=== PATIENT | male | born 1970 | race Caucasian/White ===

== ENCOUNTER → 2019-05-08 | Outpatient (CLI) | payer OTHER ==
[2019-05-08 17:32] LABS: Luteinizing Hormone 5.6 mIU/mL; Prolactin 8.1 ng/mL (2.1-17.7)
== END | disposition home or self-care (01) ==
LOC: LABWHC1 10:57
PROVIDERS: ATTEND Urology
DX: E29.1 Testicular hypofunction (principal)
CPT/HCPCS: 36415; 83002; 84146; 84402; 84403

== ENCOUNTER 2019-09-04 01:32 | Emergency (ER) | payer OTHER ==
[2019-09-04 01:42] VITALS: BP 146/94; PULSE 91; RESP 18; TEMP 97.5
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
--- NOTE | 2019-09-04 02:10 | XR ---
EXAMINATION TYPE: XR lumbar spine 2 or 3V DATE OF EXAM: 09/04/2019 COMPARISON: NONE HISTORY: Pain TECHNIQUE: 3 views FINDINGS: Vertebra have normal alignment. Posterior elements are intact. There is degenerative disc s pace narrowing from L2 to L5. There is spurring of the endplates. There is no compression fracture. S acroiliac joints appear normal. IMPRESSION: Multilevel spondylotic changes. No fracture seen. There are probably left small renal d[place] culi.
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
--- NOTE | 2019-09-04 02:18 | XR ---
EXAMINATION TYPE: XR cervical spine trauma DATE OF EXAM: 09/04/2019 COMPARISON: NONE HISTORY: Neck pain TECHNIQUE: 4 views FINDINGS: Cervical vertebra have normal alignment. There is some narrowing of C5-6 disc space with an terior spurring. Posterior elements are intact. There is no evidence of a fracture. There are no cerv ical ribs. Atlantoaxial facet joint is normal. IMPRESSION: Mild spondylosis. No fracture.
== END 2019-09-04 02:40 | disposition home or self-care (01) ==
LOC: EC 01:32
DX: Z04.1 Encounter for examination and observation following transport accident (principal); M54.2 Cervicalgia; M54.5 Low back pain; J84.10 Pulmonary fibrosis, unspecified
CPT/HCPCS: 71046; 72050; 72100; 99284

== ENCOUNTER → 2019-09-24 | Outpatient (CLI) | payer OTHER | END | disposition home or self-care (01) | LOC: CPPFTMAIN 10:36 | PROVIDERS: ATTEND Family Medicine | DX: R94.2 Abnormal results of pulmonary function studies (principal); J84.89 Other specified interstitial pulmonary diseases | CPT/HCPCS: 94060; 94726; 94729 ==

== ENCOUNTER → 2019-10-16 | Outpatient (CLI) | payer OTHER ==
--- NOTE | 2019-10-16 21:46 | CT ---
EXAMINATION TYPE: CT chest wo con DATE OF EXAM: 10/16/2019 COMPARISON: Radiograph 09/04/2019 HISTORY: 48-year-old male with cough TECHNIQUE: Contiguous axial scanning of the chest without IV contrast. Coronal and sagittal reconstru ctions performed. CT DLP: 609.4 mGycm Automated exposure control for dose reduction was used. FINDINGS: The heart is normal size without pericardial effusion. Ascending aorta borderline ectatic at 3.5 cm. Conventional arch vessel branching anatomy. Scattered nonenlarged and borderline and mildly enlarged mediastinal lymph nodes are present measurin g up to 1.4 cm precarinal region, 9 mm left tracheal bronchial angle, and 1.1 cm AP window. Subcarina l lymph node measures 1.8 cm and there is a possible right paraesophageal lymph node measuring up to 2.6 cm. Multifocal patchy groundglass densities upper and mid lungs. Strandy atelectasis lower lungs. No cyst ic change or honeycombing is seen. Visualized upper abdomen shows marked hepatic steatosis. Spleen is enlarged at 17.8 cm. 7 mm nonobstr uctive left renal calculus and 3 mm nonobstructive right renal calculus. Bones: Mild endplate spondylosis mid to lower thoracic spine. IMPRESSION: 1. PATCHY AND CONFLUENT GROUND GLASS WITH AN UPPER TO MID LUNG PREDOMINANCE. THE ETIOLOGY IS UNCLEAR. DIFFERENTIAL CONSIDERATIONS INCLUDE HYPERSENSITIVITY PNEUMONITIS, ATYPICAL INFECTIONS, SARCOIDOSIS, AND INTERSTITIAL PNEUMONITIS SUCH NSIP AND RB-ILD. CONSIDER PULMONARY MEDICINE CONSULTATION. [facility] ER CLINICAL CORRELATION WILL BE NEEDED. 2. BORDERLINE AND MILDLY ENLARGED MEDIASTINAL LYMPHADENOPATHY MEASURING UP TO 1.8 CM. FINDINGS MAY BE REACTIVE. THREE-MONTH FOLLOW-UP RECOMMENDED. 3. POSSIBLE LARGER 2.6 CM RIGHT PARAESOPHAGEAL LYMPH NODE VERSUS OTHER LESION SUCH A BRONCHOGENIC/ ESOPHAGEAL DUPLICATION CYST. CONTRAST-ENHANCED CHEST MRI CAN PROVIDE FURTHER TISSUE CHARACTERIZATION. 4. MARKED HEPATIC STEATOSIS, SPLENOMEGALY AT 17.8 CM, AND BILATERAL NONOBSTRUCTIVE RENAL CALCULI LIN URING UP TO 7 MM.
== END | disposition home or self-care (01) ==
LOC: RADCTMAIN 10-01 13:15
PROVIDERS: ATTEND Family Medicine
DX: K76.0 Fatty (change of) liver, not elsewhere classified (principal); N20.0 Calculus of kidney; R16.1 Splenomegaly, not elsewhere classified; R59.0 Localized enlarged lymph nodes; R91.8 Other nonspecific abnormal finding of lung field
CPT/HCPCS: 71250

== ENCOUNTER → 2019-11-02 | Outpatient (CLI) | payer OTHER ==
[2019-11-02 12:12] LABS: Basophils % (A) 1 %; Eosinophils # (A) 0.3 k/uL (0-0.7); Eosinophils % (A) 5 %; HCT 44.8 % (39.0-53.0); HGB 14.8 gm/dL (13.0-17.5); Lymphocytes # (A) 1.1 k/uL (1.0-4.8); Lymphocytes % (A) 21 %; MCH 28.3 pg (25.0-35.0); MCHC 33.1 g/dL (31.0-37.0); MCV 85.5 fL (80.0-100.0); Mean Platelet Volume 7.4; Monocytes # (A) 0.3 k/uL (0-1.0); Monocytes % (A) 5 %; Neutrophils # (A) 3.5 k/uL (1.3-7.7); Neutrophils % (A) 67 %; Platelet Count 212 k/uL (150-450); Poikilocytosis Slight; RBC 5.24 m/uL (4.30-5.90); RDW 14.6 % (11.5-15.5); WBC 5.3 k/uL (3.8-10.6)
[2019-11-02 14:55] LABS: Erythrocyte Sedimentation Rate 16 mm/hr (0-15)
[2019-11-02 18:15] LABS: ALT 31 U/L (10-49); AST 37 U/L (14-35); African American GFR (CKD) 82.4 (60.0-200.0); Albumin/Globulin Ratio 1.48 (1.60-3.17); Alkaline Phosphatase 127 U/L (41-126); BUN/Creat Ratio 14.17 Ratio (12.00-20.00); Calcium 8.9 mg/dL (8.7-10.3); Carbon Dioxide 24.6 mmol/L (21.6-31.8); Chloride 105 mmol/L (96-109); Globulin 2.9 g/dL (1.6-3.3); Glucose 157 mg/dL (70-110); Non-African American GFR(CKD) 71.1 (60.0-200.0); Potassium 4.1 mmol/L (3.5-5.5); Rheumatoid Factor, Qnt <4 IU/mL (0-15); Sodium 138 mmol/L (135-145); Total Bilirubin 0.6 mg/dL (0.3-1.2); Total Protein 7.2 g/dL (6.2-8.2)
[2019-11-04 12:39] LABS: Anti-DNA, DS unit <1.0 IU/mL; Anti-Smith Ab Interp NEGATIVE (NEGATIVE); DNA Double-Stranded NEGATIVE (NEGATIVE)
[2019-11-07 21:36] LABS: Alternaria Alternata IgG 9.3 mcg/mL (< 13.6); Aspergillus fumigatus IgG Not detected (Not detected); Aureobasidium pullulans IgG 9.2 mcg/mL (< 13.6); Cladosporium herbarium IgG 35.1 mcg/mL (< 14.7); Phoma ssp. IgG 8.9 mcg/mL (< 6.6); Saccaharomospora viridis Not detected (Not detected); Saccaharopoly. rectivirgula Not detected (Not detected)
== END | disposition home or self-care (01) ==
LOC: LABWHC1 11:36
PROVIDERS: ATTEND Internal Medicine Critical Care Medicine
DX: J84.9 Interstitial pulmonary disease, unspecified (principal); R05 Cough
CPT/HCPCS: 36415; 80053; 82164; 85025; 85652; 86001; 86038; 86225; 86235; 86431; 86606; 86609

== ENCOUNTER 2019-11-27 12:20 | Day surgery (SDC) | payer OTHER ==
[2019-11-25 11:26] VITALS: BMI 42.5
[~2019-11-27 12:20] MED LIST: ALBUTEROL NEB (CONC) 2.5 MG/0.5 ML INHALATION ONE; LACTATED RINGERS 1,000 ML IV SCH; LIDOCAINE 1% (10MG/ML) FOR IV START INTRADERMA PRN; LIDOCAINE 2% (PF) 20 MG/ML 5 ML VIAL INHALATION ONE; LIDOCAINE VISCOUS 300 MG/15 ML CUP MUCOUS MEM ONE; Pre Op ABX Message 1 EACH MISC MISCELLANE ONE; SODIUM CHLORIDE 0.9% 1,000 ML IV SCH
[2019-11-27 12:43] VITALS: TEMP 97.4
[2019-11-27] MEDS ORDERED: PROPOFOL 10 MG/ML 20 ML VIAL IV ONE (13:30)
[2019-11-27] MEDS ORDERED: LIDOCAINE 1% INJ 10MG/ML (20 ML MDV) ONE (13:30)
[2019-11-27] MEDS ORDERED: LIDOCAINE 2% INJ 20 MG/ML INTRATRACH ONE (13:52)
--- NOTE | 2019-11-27 14:16 | P.PCN ---
Date of Procedure: 11/27/19 Preoperative Diagnosis: Diffuse bilateral pulmonary infiltrates, mediastinal adenopathy, rule out sarcoidosis Postoperative Diagnosis: Diffuse bilateral pulmonary infiltrates, mediastinal adenopathy, rule out sarcoidosis Procedure(s) Performed: Flexible bronchoscopy Transbronchial biopsies of the right lung Bronchioloalveolar lavage of the right middle lobe Anesthesia: SOUTH Surgeon: Donovan Finch Estimated Blood Loss (ml): 30 Pathology: other Condition: stable Disposition: same day Operative Findings: This procedure was done under conscious sedation with anesthetic agents is being administered by anesthesia the bedside. After achieving adequate sedation, the flexible bronchoscope was introduced the right nostril and was advanced into the upper airway. Examination of the posterior oropharynx, larynx, epiglottis, arytenoids and the vocal cords was done. All of the upper airway structures were within normal limits. There was dynamic obstruction of the pharyngeal and laryngeal wall consistent with obstructive sleep apnea. A total of 1% lidocaine was applied to the vocal cords and following that the bronchoscope was advanced into the upper trachea. Examination of the tracheal bronchial tree was done. Trachea was patent and within normal limits. Kandy was sharp in the midline and following that the bronchoscope was moved to the right mainstem bronchus, right upper lobe bronchus, bronchus intermedius, right middle lobe bronchus and right lower lobe bronchus was seen and visualized along with inspection of the radius segments. Bronchus was within the left and left mainstem bronchus, left upper lobe and left lower lobe bronchi were inspected along with various segments. There was endobronchial inflammatory changes throughout the patient's airways mainly in the main stem bronchi bilaterally and the main airways leading into the upper and lower lobes bilaterally. The mucosa was friable and inflamed. The bronchoscope was moved to the right middle lobe where a bronchioloalveolar lavage was done and. A total of 60 mL of fluid was infused and 25-30 mL was aspirated. Following that, the fluoroscopic guidance, transbronchial biopsies of the right lung was done and biopsies from the right upper lobe anterior segment, right middle lobe and the right lower lobe ST segment was done and the fluoroscopic guidance. There was some bleeding encountered was wedged utilizing the bronchoscope and was temponaded. At the completion of the procedure, the estimated blood loss was around 25 mL. The airways were cleared of any residual bloody mucus or secretions. No active bleeding was visualized. Bronchoscope was removed and the patient will be transferred to recovery in stable condition. Chest x-ray will be done. Rule out pneumothorax. We'll continue to follow.
--- NOTE | 2019-11-27 14:31 | FL ---
EXAMINATION TYPE: FL bronchoscopy DATE OF EXAM: 11/27/2019 CLINICAL HISTORY: Fluoroscopic documentation during bronchoscopy TECHNIQUE: Fluoroscopy. COMPARISON: None. FINDINGS: Fluoroscopic guidance was provided during procedure performed by Dr. Finch. A total of 1.23 minutes of fluoroscopic time was utilized during the procedure and 6 spot images was acquired d uring bronchoscopy. IMPRESSION: As Above.
--- NOTE | 2019-11-27 14:52 | XR ---
EXAMINATION TYPE: XR chest 1V portable DATE OF EXAM: 11/27/2019 COMPARISON: 09/04/2019 HISTORY: Cough TECHNIQUE: Single frontal view of the chest is obtained. FINDINGS: Heart size is prominent there is a coarsened central interstitium. No pleural effusion or pneumothorax. No consolidative process. IMPRESSION: Coarsened interstitium can be associated with bronchitis, interstitial pneumonitis or in terstitial pneumonia. Lack of pleural fluid argues against venous congestion. Correlate clinically.
[2019-11-27] MEDS ORDERED: ACETAMINOPHEN TAB 325 MG TAB PO ONE (15:01)
[2019-11-27 15:03] VITALS: BP 116/66; PULSE 85; RESP 20
[2019-11-27 16:33] LABS: Appearance,BF Hazy; Color,BF Colorless; Nucleated Cells, Body Fluid 35 /uL; RBC, Body Fluid 50 /uL
[2019-11-27 16:36] LABS: Mononuclear WBC,Body Fluid 60 %; Polynuclear WBC,Body Fluid 38 %; Total Cells Counted,Body Fluid 100
== END 2019-11-27 15:29 | disposition home or self-care (01) ==
LOC: ORWHC2ENDO 12:20
PROVIDERS: ATTEND Internal Medicine Critical Care Medicine
DX: R91.8 Other nonspecific abnormal finding of lung field (principal); R59.0 Localized enlarged lymph nodes; G47.33 Obstructive sleep apnea (adult) (pediatric); Z99.89 Dependence on other enabling machines and devices; K21.9 Gastro-esophageal reflux disease without esophagitis; E66.9 Obesity, unspecified; Z68.41 Body mass index [BMI] 40.0-44.9, adult; M10.9 Gout, unspecified; I10 Essential (primary) hypertension; Z83.3 Family history of diabetes mellitus; Z82.49 Family history of ischemic heart disease and other diseases of the circulatory system; Z87.891 Personal history of nicotine dependence; Z79.899 Other long term (current) drug therapy; Z79.1 Long term (current) use of non-steroidal anti-inflammatories (NSAID)
CPT/HCPCS: 31624; 31628; 71045; 87070; 87102; 87116; 87205; 87206; 87252; 87496; 87498; 87502; 87529; 87634; 87798; 88108; 88305; 89050; 94640

== ENCOUNTER → 2020-02-25 | Outpatient (CLI) | payer OTHER ==
[2020-02-25 22:49] LABS: Hemoglobin A1C 12.9 % (4.0-6.0)
== END | disposition home or self-care (01) ==
LOC: LABWHC1 09:46
PROVIDERS: ATTEND Internal Medicine Critical Care Medicine
DX: D64.9 Anemia, unspecified (principal); J84.9 Interstitial pulmonary disease, unspecified
CPT/HCPCS: 36415; 82164; 82947; 83036

== ENCOUNTER 2020-02-27 23:21 | Emergency (ER) | payer OTHER ==
[2020-02-27 23:37] VITALS: TEMP 97.9
[2020-02-27 23:37] LABS: Glucose,Whole Blood >600 mg/dL (75-99)
[2020-02-28 00:02] LABS: Basophils # (A) 0.1 k/uL (0-0.2); Basophils % (A) 1 %; Eosinophils # (A) 0.2 k/uL (0-0.7); Eosinophils % (A) 4 %; HCT 44.9 % (39.0-53.0); Lymphocytes % (A) 17 %; MCH 28.8 pg (25.0-35.0); MCHC 33.3 g/dL (31.0-37.0); MCV 86.4 fL (80.0-100.0); Mean Platelet Volume 7.5; Monocytes # (A) 0.2 k/uL (0-1.0); Monocytes % (A) 4 %; Neutrophils # (A) 4.2 k/uL (1.3-7.7); Neutrophils % (A) 73 %; Platelet Count 183 k/uL (150-450); RDW 13.9 % (11.5-15.5); WBC 5.7 k/uL (3.8-10.6)
[2020-02-28 00:20] LABS: ALT 33 U/L (4-49); AST 35 U/L (17-59); African American GFR (CKD) >90 (>60 ml/min/1.73 sqM); Alkaline Phosphatase 198 U/L (38-126); Anion Gap 10 mmol/L; Blood Urea Nitrogen 20 mg/dL (9-20); Calcium 8.9 mg/dL (8.4-10.2); Carbon Dioxide 21 mmol/L (22-30); Chloride 96 mmol/L (98-107); Non-African American GFR(CKD) 81 (>60 ml/min/1.73 sqM); Phosphorus 3.9 mg/dL (2.5-4.5); Potassium 4.6 mmol/L (3.5-5.1); Sodium 127 mmol/L (137-145); Total Bilirubin 0.7 mg/dL (0.2-1.3)
[2020-02-28 00:20] LABS: Appearance,Urine Clear (Clear); Bilirubin,Urine Negative (Negative); Blood,Urine Negative (Negative); Color,Urine Light Yellow; Glucose,Urine (UA) 4+ (Negative); Ketones,Urine 1+ (Negative); Leukocyte Esterase,Urine Negative (Negative); Nitrite,Urine Negative (Negative); Protein,Urine Negative (Negative); Specific Gravity,Urine 1.027 (1.001-1.035); Urobilinogen,Urine <2.0 mg/dL (<2.0)
--- NOTE | 2020-02-28 00:24 | XR ---
EXAMINATION TYPE: XR chest 2V DATE OF EXAM: 02/27/2020 COMPARISON: NONE HISTORY: Diabetes high glucose TECHNIQUE: FINDINGS: There is some coarsening of interstitial markings. Heart size is normal. There is no pleura l effusion. There is no heart failure. IMPRESSION: Pulmonary fibrosis. Normal heart. No change.
[2020-02-28] MEDS ORDERED: SODIUM CHLORIDE 0.9% 500 ML 500 ML IV ONE (00:31)
[2020-02-28] MEDS ORDERED: SODIUM CHLORIDE 0.9% 1,000 ML IV ONE (00:31)
[2020-02-28] MEDS ORDERED: INSULIN REGULAR 100 UNIT/ML VIAL IV ONE ×2 (00:32→03:04)
[2020-02-28 00:34] LABS: VBG PH 7.38 (7.31-7.41)
--- NOTE | 2020-02-28 00:41 | ED ---
Recheck HPI - General Source: patient Mode of arrival: ambulatory Limitations: no limitations <Magnolia Douglas - Last Filed: 02/28/20 03:04> <Blanca Tiwari - Last Filed: 02/28/20 04:39> - General Chief Complaint: Recheck/Abnormal Lab/Rx Stated Complaint: High Blood Sugar Time Seen by Provider: 02/27/20 23:37 - History of Present Illness Initial Comments: 49-year-old male with history of type 2 diabetes currently started on metformin for the past 2 days presents emergency department today for chief complaint of elevated blood glucose. Patient states record his blood glucoses evening where it was over there be to pull limit with a value of "high". He states this was concerning and presented to the ER. Admits to increasing urination and urge to drink water. Patient denies additional complaints. Patient denies any recent fever, chills, shortness of breath, chest pain, back pain, abdominal pain, nausea or vomiting, numbness or tingling, dysuria or hematuria, constipation or diarrhea, headaches or visual changes, or any other complaints. (Magnolia Douglas) - Related Data Home Medications Medication Instructions Recorded Confirmed Allopurinol [Zyloprim] 300 mg PO DAILY 11/25/19 11/25/19 Losartan [Cozaar] 25 mg PO DAILY 11/25/19 11/25/19 amLODIPine [Norvasc] 5 mg PO DAILY 11/25/19 11/25/19 Indomethacin [Indocin ER] 75 mg PO DAILY PRN 11/27/19 11/27/19 Allergies Allergy/AdvReac Type Severity Reaction Status Date / Time hazelnut Allergy Anaphylaxis Verified 02/27/20 23:37 Review of Systems ROS Other: All systems not noted in ROS Statement are negative. <Magnolia Douglas - Last Filed: 02/28/20 03:04> ROS Other: All systems not noted in ROS Statement are negative. <Blanca Tiwari - Last Filed: 02/28/20 04:39> ROS Statement: Those systems with pertinent positive or pertinent negative responses have been documented in the HPI. Past Medical History Past Medical History: Diabetes Mellitus, GERD/Reflux, Hypertension, Sleep [employer]os[employer] ea/CPAP/BIPAP Additional Past Medical History / Comment(s): "low grade cough since robert". gout. has cpap machine History of Any Multi-Drug Resistant Organisms: None Reported Past Surgical History: No Surgical Hx Reported Past Anesthesia/Blood Transfusion Reactions: Family History of Problems w/ Anesthesia Additional Past Anesthesia/Blood Transfusion Reaction / Comment(s): has never had anesthesia. mother takes longer to wake up from anesthesia Past Psychological History: No Psychological Hx Reported Smoking Status: Former smoker Past Alcohol Use History: Rare Past Drug Use History: None Reported - Past Family History Father Family Medical History: Cancer, Coronary Artery Disease (CAD) Mother Family Medical History: Diabetes Mellitus <Magnolia Douglas - Last Filed: 02/28/20 03:04> General Exam Limitations: no limitations <Magnolia Douglas - Last Filed: 02/28/20 03:04> Course <Magnolia Douglas - Last Filed: 02/28/20 03:04> Vital Signs 02/27/20 23:33 Temperature 97.9 F Pulse Rate 82 Respiratory 18 Rate Blood Pressure 143/85 O2 Sat by Pulse 97 Oximetry - Reevaluation(s) Reevaluation #1: Glucose trending downward, pt not found to have labs suggestive of DKA. ANion Gap WNL. ACetone (-). Will continue to treat elevated glucose, patient signed out to Dr. Tiwari at 15:05. 02/28/20 03:05 (Magnolia Douglas) Medical Decision Making - Lab Data Result diagrams: 02/27/20 23:49 02/27/20 23:49 <Magnolia Douglas - Last Filed: 02/28/20 03:04> - Lab Data Result diagrams: 02/27/20 23:49 02/27/20 23:49 <Blanca Tiwari - Last Filed: 02/28/20 04:39> - Medical Decision Making Patient was seen and evaluated by nc cancer PA, this is a new diagnosed type II diabetic who is been on metformin for only 2 days. His glucose at the time of diagnosis was in the mid 300s this morning he was in the mid 500s and upon arrival is over 600. His labs were unremarkable is no signs of DKA CT chest. Sugars improved with IV fluids and insulin here in the ER. Sugar was 400 time of discharge however this is similar to patient's glucose during his previous office visit he is scheduled to see his PCP later today. At this time I don't feel there is any information for admission to hospital for further management patient comfortable plan for discharge home follow up with PCP later today. (Blanca Tiwari) - Lab Data Lab Results 02/27/20 02/27/20 02/27/20 Range/Units 23:36 23:49 23:49 WBC 5.7 (3.8-10.6) k/uL RBC 5.20 (4.30-5.90) m/uL Hgb 15.0 (13.0-17.5) gm/dL Hct 44.9 (39.0-53.0) % MCV 86.4 (80.0-100.0) fL MCH 28.8 (25.0-35.0) pg MCHC 33.3 (31.0-37.0) g/dL RDW 13.9 (11.5-15.5) % Plt Count 183 (150-450) k/uL Neutrophils % 73 % Lymphocytes % 17 % Monocytes % 4 % Eosinophils % 4 % Basophils % 1 % Neutrophils # 4.2 (1.3-7.7) k/uL Lymphocytes # 1.0 (1.0-4.8) k/uL Monocytes # 0.2 (0-1.0) k/uL Eosinophils # 0.2 (0-0.7) k/uL Basophils # 0.1 (0-0.2) k/uL VBG pH (7.31-7.41) VBG pCO2 (37-51) mmHg VBG HCO3 (24-28) mmol/L Sodium 127 L (137-145) mmol/L Potassium 4.6 (3.5-5.1) mmol/L Chloride 96 L (98-107) mmol/L Carbon Dioxide 21 L (22-30) mmol/L Anion Gap 10 mmol/L BUN 20 (9-20) mg/dL Creatinine 1.08 (0.66-1.25) mg/dL Est GFR (CKD-EPI)AfAm >90 (>60 ml/min/1.73 sqM) Est GFR (CKD-EPI)NonAf 81 (>60 ml/min/1.73 sqM) Glucose 629 H* (74-99) mg/dL POC Glucose (mg/dL) >600 H (75-99) mg/dL POC Glu [employer] Associate ID Edgar Blue Calcium 8.9 (8.4-10.2) mg/dL Phosphorus 3.9 (2.5-4.5) mg/dL Total Bilirubin 0.7 (0.2-1.3) mg/dL AST 35 (17-59) U/L ALT 33 (4-49) U/L Alkaline Phosphatase 198 H (38-126) U/L Total Protein 7.0 (6.3-8.2) g/dL Albumin 4.0 (3.5-5.0) g/dL Urine Color Urine Appearance (Clear) Urine pH (5.0-8.0) Ur Specific Wirt (1.001-1.035) Urine Protein (Negative) Urine Glucose (UA) (Negative) Urine Ketones (Negative) Urine Blood (Negative) Urine Nitrite (Negative) Urine Bilirubin (Negative) Urine Urobilinogen (<2.0) mg/dL Ur Leukocyte Esterase (Negative) Acetone, Qual Negative (Negative) 02/28/20 02/28/20 02/28/20 Range/Units 00:10 00:24 02:01 WBC (3.8-10.6) k/uL RBC (4.30-5.90) m/uL Hgb (13.0-17.5) gm/dL Hct (39.0-53.0) % MCV (80.0-100.0) fL MCH (25.0-35.0) pg MCHC (31.0-37.0) g/dL RDW (11.5-15.5) % Plt Count (150-450) k/uL Neutrophils % % Lymphocytes % % Monocytes % % Eosinophils % % Basophils % % Neutrophils # (1.3-7.7) k/uL Lymphocytes # (1.0-4.8) k/uL Monocytes # (0-1.0) k/uL Eosinophils # (0-0.7) k/uL Basophils # (0-0.2) k/uL VBG pH 7.38 (7.31-7.41) VBG pCO2 43 (37-51) mmHg VBG HCO3 25 (24-28) mmol/L Sodium (137-145) mmol/L Potassium (3.5-5.1) mmol/L Chloride (98-107) mmol/L Carbon Dioxide (22-30) mmol/L Anion Gap mmol/L BUN (9-20) mg/dL Creatinine (0.66-1.25) mg/dL Est GFR (CKD-EPI)AfAm (>60 ml/min/1.73 sqM) Est GFR (CKD-EPI)NonAf (>60 ml/min/1.73 sqM) Glucose (74-99) mg/dL POC Glucose (mg/dL) 532 H (75-99) mg/dL POC Glu [employer] Associate ID Edgar Blue Calcium (8.4-10.2) mg/dL Phosphorus (2.5-4.5) mg/dL Total Bilirubin (0.2-1.3) mg/dL AST (17-59) U/L ALT (4-49) U/L Alkaline Phosphatase (38-126) U/L Total Protein (6.3-8.2) g/dL Albumin (3.5-5.0) g/dL Urine Color Light Yellow Urine Appearance Clear (Clear) Urine pH 5.0 (5.0-8.0) Ur Specific Wirt 1.027 (1.001-1.035) Urine Protein Negative (Negative) Urine Glucose (UA) 4+ H (Negative) Urine Ketones 1+ H (Negative) Urine Blood Negative (Negative) Urine Nitrite Negative (Negative) Urine Bilirubin Negative (Negative) Urine Urobilinogen <2.0 (<2.0) mg/dL Ur Leukocyte Esterase Negative (Negative) Acetone, Qual (Negative) 02/28/20 02/28/20 Range/Units 03:02 04:05 WBC (3.8-10.6) k/uL RBC (4.30-5.90) m/uL Hgb (13.0-17.5) gm/dL Hct (39.0-53.0) % MCV (80.0-100.0) fL MCH (25.0-35.0) pg MCHC (31.0-37.0) g/dL RDW (11.5-15.5) % Plt Count (150-450) k/uL Neutrophils % % Lymphocytes % % Monocytes % % Eosinophils % % Basophils % % Neutrophils # (1.3-7.7) k/uL Lymphocytes # (1.0-4.8) k/uL Monocytes # (0-1.0) k/uL Eosinophils # (0-0.7) k/uL Basophils # (0-0.2) k/uL VBG pH (7.31-7.41) VBG pCO2 (37-51) mmHg VBG HCO3 (24-28) mmol/L Sodium (137-145) mmol/L Potassium (3.5-5.1) mmol/L Chloride (98-107) mmol/L Carbon Dioxide (22-30) mmol/L Anion Gap mmol/L BUN (9-20) mg/dL Creatinine (0.66-1.25) mg/dL Est GFR (CKD-EPI)AfAm (>60 ml/min/1.73 sqM) Est GFR (CKD-EPI)NonAf (>60 ml/min/1.73 sqM) Glucose (74-99) mg/dL POC Glucose (mg/dL) 470 H 401 H (75-99) mg/dL POC Glu [employer] Associate ID Corrie Camilo A Myers, Taylor Calcium (8.4-10.2) mg/dL Phosphorus (2.5-4.5) mg/dL Total Bilirubin (0.2-1.3) mg/dL AST (17-59) U/L ALT (4-49) U/L Alkaline Phosphatase (38-126) U/L Total Protein (6.3-8.2) g/dL Albumin (3.5-5.0) g/dL Urine Color Urine Appearance (Clear) Urine pH (5.0-8.0) Ur Specific Wirt (1.001-1.035) Urine Protein (Negative) Urine Glucose (UA) (Negative) Urine Ketones (Negative) Urine Blood (Negative) Urine Nitrite (Negative) Urine Bilirubin (Negative) Urine Urobilinogen (<2.0) mg/dL Ur Leukocyte Esterase (Negative) Acetone, Qual (Negative) Disposition Is patient prescribed a controlled substance at d/c from ED?: No Time of Disposition: 00:41 <Magnolia Douglas - Last Filed: 02/28/20 03:04> Is patient prescribed a controlled substance at d/c from ED?: No <Blanca Tiwari P - Last Filed: 02/28/20 04:39> Clinical Impression: Hyperglycemia, Type 2 diabetes mellitus Disposition: HOME SELF-CARE Condition: Stable Instructions (If sedation given, give patient instructions): Diabetic Hyperglycemia (ED) Additional Instructions: Increase Metformin to 2x daily, contact Dr Hewitt today Referrals: Ernesto Hewitt Jr, DO [Primary Care Provider] - 1-2 days
[2020-02-28] MEDS ORDERED: SODIUM CHLORIDE 0.9% 1,000 ML IV SCH (00:45)
[2020-02-28 02:03] LABS: Glucose,Whole Blood 532 mg/dL (75-99)
[2020-02-28] MEDS ORDERED: INSULIN REGULAR 100 UNIT/ML VIAL SQ ONE (02:03)
[2020-02-28 02:23] LABS: Glucose 629 mg/dL (74-99)
[2020-02-28 03:14] LABS: Glucose,Whole Blood 470 mg/dL (75-99)
[2020-02-28 04:09] LABS: Glucose,Whole Blood 401 mg/dL (75-99)
[2020-02-28 05:48] VITALS: BP 139/84; PULSE 77; RESP 16
== END 2020-02-28 04:45 | disposition home or self-care (01) ==
LOC: EC 23:21
DX: E11.65 Type 2 diabetes mellitus with hyperglycemia (principal); I10 Essential (primary) hypertension; G47.30 Sleep apnea, unspecified; Z79.899 Other long term (current) drug therapy; Z91.018 Allergy to other foods; Z99.89 Dependence on other enabling machines and devices; Z87.891 Personal history of nicotine dependence
CPT/HCPCS: 36415; 71046; 80053; 81003; 82009; 82803; 84100; 85025; 93005; 96360; 96361; 99285

== ENCOUNTER → 2020-03-13 | Outpatient (CLI) | payer OTHER ==
[2020-03-13 19:17] LABS: African American GFR (CKD) 82.4 (60.0-200.0); Non-African American GFR(CKD) 71.1 (60.0-200.0)
== END | disposition home or self-care (01) ==
LOC: LABWHC1 11:32
PROVIDERS: ATTEND Internal Medicine Critical Care Medicine
DX: J84.9 Interstitial pulmonary disease, unspecified (principal)
CPT/HCPCS: 36415; 82565; 84520

== ENCOUNTER → 2020-03-14 | Outpatient (CLI) | payer OTHER ==
--- NOTE | 2020-03-15 21:21 | CT ---
EXAMINATION TYPE: CT chest w con DATE OF EXAM: 03/14/2020 COMPARISON: 10/16/2019 HISTORY: 49-year-old male J84.9, Interstitial pulmonary disease. TECHNIQUE: Contiguous axial scanning of the chest after the administration of 100ml mL of Isovue 300. Coronal/sagittal reconstructions performed. CT DLP: 607.1mGycm. Automatic exposure control utilized for a dose reduction. FINDINGS: Heart normal size without pericardial effusion. Aorta normal caliber with conventional arch vessel branching anatomy. Redemonstrated numerous scattered mediastinal lymph nodes. The largest of these show slight interval decrease in size from 10/16/2019. For example, lower right paratracheal measuring 1.2 cm versus 1.4 cm, previously. 1.5 cm subcarinal versus 1.8 cm, previously. Paraesophageal measuring 2.2 cm versus 2.6 cm, previously. No progressive lymphadenopathy is identified. Peribronchial vascular and peripheral reticular and groundglass densities persist. The overall ground glass densities are slightly less confluent as compared to prior exam but residual densities remain. No cystic change, progressive consolidation, or pleural effusion. Giovany hepatic lymph node in the upper abdomen measures 1.1 cm versus 1.2 cm, previously. Spleen remai ns enlarged at 17.8 cm. Marked low attenuation of the hepatic parenchyma compatible with fatty infilt ration. 9 mm nonobstructive left renal calculus. Bones: Anterior endplate spondylosis lower thoracic spine. No osseous destructive process. IMPRESSION: 1. Residual reticular and groundglass changes with some improvement compared to 10/16/2019. Consider i mproving hypersensitivity pneumonitis, sarcoidosis, or interstitial pneumonitis. Additional follow-up can be performed. 2. Mediastinal lymphadenopathy also shows some improvement currently measuring up to 2.2 cm versus 2. 6 cm, previously. 3. Hepatic steatosis, persistent splenomegaly at 17.8 cm, and 9 mm nonobstructive left renal calculus .
== END | disposition home or self-care (01) ==
LOC: RADCTMAIN 08:49
PROVIDERS: ATTEND Internal Medicine Critical Care Medicine
DX: R59.0 Localized enlarged lymph nodes (principal); J84.9 Interstitial pulmonary disease, unspecified
CPT/HCPCS: 71260; Q9967

== ENCOUNTER → 2020-05-28 | Outpatient (CLI) | payer OTHER ==
[2020-05-28 15:37] LABS: African American GFR (CKD) 68.4 (60.0-200.0); Albumin 4.4 g/dL (3.80-4.90); Albumin/Globulin Ratio 1.63 (1.60-3.17); Anion Gap 8.8 mmol/L (4.00-12.00); BUN/Creat Ratio 17.86 Ratio (12.00-20.00); Calcium 9.9 mg/dL (8.7-10.3); Carbon Dioxide 27.2 mmol/L (21.6-31.8); Chol/HDL Ratio 4.4; Globulin 2.7 g/dL (1.6-3.3); LDL Cholesterol,Calculated 84.8 mg/dL (0.0-131.0); Potassium 4.3 mmol/L (3.5-5.5); Total Bilirubin 0.6 mg/dL (0.2-1.2); Total Protein 7.1 g/dL (6.2-8.2); VLDL Calculation 34.2 mg/dL (5.00-40.00)
[2020-05-28 17:01] LABS: Urine Creatinine 81.7 mg/dL
[2020-05-28 17:03] LABS: Hemoglobin A1C 5.2 % (4.0-6.0)
== END | disposition home or self-care (01) ==
LOC: LABWHC1 05-27 11:21
PROVIDERS: ATTEND Internal Medicine Endocrinology, Diabetes & Metabolism
DX: E11.65 Type 2 diabetes mellitus with hyperglycemia (principal)
CPT/HCPCS: 36415; 80053; 80061; 82043; 82570; 83036; 84443

== ENCOUNTER → 2020-08-19 | Outpatient (CLI) | payer OTHER ==
--- NOTE | 2020-08-19 12:02 | CT ---
EXAMINATION TYPE: CT chest w con DATE OF EXAM: 08/19/2020 COMPARISON: 03/14/2020 HISTORY: Follow up sarcoid. Shortness of breath. CT DLP: 565.5 mGycm Automated exposure control for dose reduction was used. CONTRAST: CT scan of the chest is performed with IV Contrast, patient injected with 100 mL of Isovue 300. FINDINGS: Heart normal size without pericardial effusion. Aorta normal caliber with conventional arch vessel branching anatomy. Redemonstrated numerous scattered mediastinal lymph nodes. The largest of these show slight interval decrease in size from prior exam. For example, lower right paratracheal measuring 1.2 cm and stable. 1.5 cm subcarinal on the previous exam now measures 1.8 cm. Paraesophageal measuring 2.2 cm versus 2. 6 cm, previously. Peribronchial vascular and peripheral reticular and groundglass densities persist. Mild peribronchial wall thickening on the right incidentally noted The overall groundglass densities are slightly less confluent as compared to prior exam but residual densities remain. No cystic change, progressive consolidation, or pleural effusion. Giovany hepatic lymph node in the upper abdomen measures 1.1 cm and stable. Spleen remains enlarged at 16.8 cm. Marked low attenuation of the hepatic parenchyma compatible with fatty infiltration. 9 mm no nobstructive left renal calculus. Bones: Anterior endplate spondylosis lower thoracic spine. No osseous destructive process. IMPRESSION: 1. There are persistent patchy anomaly interstitial and groundglass infiltrates throughout the lungs similar pattern to the prior exam which may represent patient's history of pulmonary sarcoidosis. Add itionally given differences in technique the adenopathy within the mediastinum and hilum is similar t o the prior exam. 2. Splenomegaly 3. Nonobstructing left renal calculus
== END | disposition home or self-care (01) ==
LOC: RADCTMAIN 10:11
PROVIDERS: ATTEND Internal Medicine Critical Care Medicine
DX: J84.9 Interstitial pulmonary disease, unspecified (principal); I10 Essential (primary) hypertension; R91.8 Other nonspecific abnormal finding of lung field; R59.9 Enlarged lymph nodes, unspecified; R16.1 Splenomegaly, not elsewhere classified; N20.0 Calculus of kidney
CPT/HCPCS: 82565; 84520; 71260; 36415; Q9967

== ENCOUNTER → 2020-11-12 | Outpatient (CLI) | payer OTHER ==
[2020-11-12 16:38] LABS: Hemoglobin A1C 5.3 % (4.0-6.0)
[2020-11-12 18:03] LABS: African American GFR (CKD) 74.3 (60.0-200.0); Albumin 4.1 g/dL (3.80-4.90); Albumin/Globulin Ratio 1.28 (1.60-3.17); Anion Gap 7.9 mmol/L (4.00-12.00); BUN/Creat Ratio 15.38 Ratio (12.00-20.00); Calcium 9.6 mg/dL (8.7-10.3); Carbon Dioxide 26.1 mmol/L (21.6-31.8); Chol/HDL Ratio 4.38; Globulin 3.2 g/dL (1.6-3.3); LDL Cholesterol,Calculated 70.8 mg/dL (0.0-131.0); Non-African American GFR(CKD) 64.1 (60.0-200.0); Potassium 4.1 mmol/L (3.5-5.5); Total Bilirubin 0.7 mg/dL (0.3-1.2); Total Protein 7.3 g/dL (6.2-8.2); VLDL Calculation 37.2 mg/dL (5.00-40.00)
[2020-11-13 00:26] LABS: Urine Creatinine 117.5 mg/dL
== END | disposition home or self-care (01) ==
LOC: LABWHC1 09:05
PROVIDERS: ATTEND Internal Medicine Endocrinology, Diabetes & Metabolism
DX: E11.65 Type 2 diabetes mellitus with hyperglycemia (principal); J84.9 Interstitial pulmonary disease, unspecified
CPT/HCPCS: 36415; 80053; 80061; 82043; 82164; 82570; 83036; 84443

== ENCOUNTER → 2021-06-08 | Outpatient (CLI) | payer OTHER ==
[2021-06-08 20:08] LABS: African American GFR (CKD) 74.3 (60.0-200.0); Albumin 4.2 g/dL (3.80-4.90); Albumin/Globulin Ratio 1.35 (1.60-3.17); Anion Gap 6.2 mmol/L (4.00-12.00); BUN/Creat Ratio 11.54 Ratio (12.00-20.00); Calcium 9.1 mg/dL (8.7-10.3); Carbon Dioxide 27.8 mmol/L (21.6-31.8); Chol/HDL Ratio 4.03; Globulin 3.1 g/dL (1.6-3.3); LDL Cholesterol,Calculated 69.4 mg/dL (0.0-131.0); Non-African American GFR(CKD) 64.1 (60.0-200.0); Potassium 4.3 mmol/L (3.5-5.5); Total Bilirubin 0.6 mg/dL (0.2-1.2); Total Protein 7.3 g/dL (6.2-8.2); VLDL Calculation 27.6 mg/dL (5.00-40.00)
[2021-06-08 20:45] LABS: Urine Creatinine 125.1 mg/dL
[2021-06-08 20:50] LABS: Hemoglobin A1C 5.5 % (4.0-6.0)
== END | disposition home or self-care (01) ==
LOC: LABWHC1 11:12
PROVIDERS: ATTEND Internal Medicine Endocrinology, Diabetes & Metabolism
DX: E11.9 Type 2 diabetes mellitus without complications (principal)
CPT/HCPCS: 36415; 80053; 80061; 82043; 82570; 83036; 84443

== ENCOUNTER → 2021-12-10 | Outpatient (CLI) | payer OTHER ==
--- NOTE | 2021-12-10 10:31 | CT ---
EXAMINATION TYPE: CT chest w con DATE OF EXAM: 12/10/2021 COMPARISON: 08/19/2020 HISTORY: Interstitial lung disease, sarcoidosis. CT DLP: 816 mGycm Automated exposure control for dose reduction was used. TECHNIQUE: CT scan of the chest is performed with IV Contrast, patient injected with 100 mL of Isovue M300. MIP Images are created on CT scanner and reviewed. 3D reconstructed images are created on an independent workstation and reviewed. FINDINGS: Heart normal size without pericardial effusion. Aorta normal caliber with conventional arch vessel br anching anatomy. Redemonstrated numerous scattered mediastinal lymph nodes. The largest of these show slight interval decrease in size from prior exam. For example, lower right paratracheal measuring 1.2 cm and stable. 1.8 cm subcarinal on the previous exam now measures 1.8 cm. There are multiple subcarinal lymph nodes which form a conglomerate area of adenopathy. Overall similar to the prior exam. Largest one measure d above. Paraesophageal measuring 2.2 cm versus 2.2 cm, previously. Peribronchial vascular and peripheral reticular and groundglass densities persist. Mild peribronchial wall thickening on the right incidentally noted. The overall groundglass densities are slightly progressed as compared to prior exam. No pneumothorax or pleural effusion. Giovany hepatic lymph node in the upper abdomen measures 1.1 cm and stable. Spleen remains enlarged at 16.8 cm. Marked low attenuation of the hepatic parenchyma compatible with fatty infiltration. 9 mm no nobstructive left renal calculus. Bones: Anterior endplate spondylosis lower thoracic spine. No osseous destructive process. IMPRESSION: 1. There are persistent patchy anomaly interstitial and groundglass infiltrates throughout the lungs are mildly progressed relative to the prior exam which may represent patient's history of pulmonary s arcoidosis. Additionally given differences in technique the adenopathy within the mediastinum and hil um is similar to the prior exam. 2. Splenomegaly 3. Nonobstructing left renal calculus . 4. Hepatic steatosis
== END | disposition home or self-care (01) ==
LOC: RADCTMAIN 08:35
PROVIDERS: ATTEND Internal Medicine Critical Care Medicine
DX: R91.8 Other nonspecific abnormal finding of lung field (principal); R59.0 Localized enlarged lymph nodes; R16.1 Splenomegaly, not elsewhere classified; N20.0 Calculus of kidney; K76.0 Fatty (change of) liver, not elsewhere classified
CPT/HCPCS: 82565; 84520; 71260; 36415; Q9967

== ENCOUNTER → 2022-07-11 | Outpatient (CLI) | payer OTHER ==
[2022-07-11 18:27] LABS: ALT 22 U/L (10-49); AST 34 U/L (14-35); African American GFR (CKD) 78.8 (60.0-200.0); Albumin 4.3 g/dL (3.8-4.9); Albumin/Globulin Ratio 1.32 (1.60-3.17); Alkaline Phosphatase 95 U/L (41-126); BUN/Creat Ratio 14.88 Ratio (12.00-20.00); Blood Urea Nitrogen 18.3 mg/dL (9.0-27.0); Calcium 9.2 mg/dL (8.7-10.3); Chloride 102 mmol/L (96-109); Chol/HDL Ratio 4.16 Ratio; Globulin 3.3 g/dL (1.6-3.3); Glucose 119 mg/dL (70-110); LDL Cholesterol,Calculated 77.4 mg/dL (0.0-131.0); Potassium 4.5 mmol/L (3.5-5.5); Sodium 138 mmol/L (135-145); Total Protein 7.6 g/dL (6.2-8.2)
[2022-07-11 21:04] LABS: Urine Creatinine 84.9 mg/dL (39.0-259.0)
== END | disposition home or self-care (01) ==
LOC: LABWHC1 11:21
PROVIDERS: ATTEND Internal Medicine Endocrinology, Diabetes & Metabolism
DX: E11.9 Type 2 diabetes mellitus without complications (principal)
CPT/HCPCS: 36415; 80053; 80061; 82043; 82570; 83036; 84443

== ENCOUNTER → 2023-01-20 | Outpatient (CLI) | payer OTHER ==
[2023-01-20 17:01] LABS: ALT 26 U/L (10-49); AST 37 U/L (14-35); African American GFR (CKD) 71.9 (60.0-200.0); Albumin 4.3 g/dL (3.8-4.9); Albumin/Globulin Ratio 1.28 (1.60-3.17); Alkaline Phosphatase 100 U/L (41-126); BUN/Creat Ratio 15.68 Ratio (12.00-20.00); Blood Urea Nitrogen 20.7 mg/dL (9.0-27.0); Calcium 9.3 mg/dL (8.7-10.3); Carbon Dioxide 27.9 mmol/L (20.0-27.5); Chloride 105 mmol/L (96-109); Chol/HDL Ratio 3.98 Ratio; Globulin 3.3 g/dL (1.6-3.3); Glucose 145 mg/dL (70-110); LDL Cholesterol,Calculated 78.1 mg/dL (0.0-131.0); Potassium 4.6 mmol/L (3.5-5.5); Sodium 142 mmol/L (135-145); Total Protein 7.6 g/dL (6.2-8.2)
== END | disposition home or self-care (01) ==
LOC: LABWHC1 07:19
PROVIDERS: ATTEND Internal Medicine Endocrinology, Diabetes & Metabolism
DX: E11.65 Type 2 diabetes mellitus with hyperglycemia (principal)
CPT/HCPCS: 36415; 80053; 80061; 82043; 82570; 83036; 84443

== ENCOUNTER → 2023-10-17 | Outpatient (CLI) | payer OTHER ==
--- NOTE | 2023-10-17 16:19 | CT ---
EXAMINATION TYPE: CT chest w con DATE OF EXAM: 10/17/2023 COMPARISON: HISTORY: Interstitial pulmonary disease. Recent diagnosis for sarcoidosis. Chronic cough. CT DLP: 624.2 mGycm, Automated exposure control for dose reduction was used. CONTRAST: Performed injected with 100 ml mL of Isovue 300. TECHNIQUE: Axial images were obtained at 5 mm thick sections. Reconstructed images are reviewed on [employer] computer in the coronal plane. FINDINGS: Portion of the thyroid visualized is normal. Groundglass opacity may be at the anterior right apex measuring approximately 2 cm. There are scattered areas of pneumonitis in the perihilar regions bilateral lungs, greater on the rig ht in the perihilar regions related some peribronchial thickening is the perihilar regions. There is a very prominent lymph node in the pretracheal space measuring 1.9 cm. Additional shotty ly mphadenopathy is present. Some hilar adenopathy on the right is likely present which is prominent. Contreras bcarinal lymph node is enlarged measuring 2.4 cm, which is enlarged from the previous 1.7 cm. Additi onal para esophageal adenopathy may be present. The ascending aorta diameter at the level of the main pulmonary artery is 3.6 cm. The main pulmonary artery diameter at the bifurcation is 3.[address] sections are obtained through the upper abdomen. There is moderate fatty infiltration thro ughout the liver. No discrete masses are evident within the field of view. Splenomegaly is present at 14.7 cm. Normal less than 12.5 cm. Liver extends out of the field of view and is more than 17 cm whi ch is enlarged.. There is a nonobstructing 0.9 cm calcification mid left kidney. Nonobstructing infer ior pole left renal calcification is present measuring 0.6 cm IMPRESSION: 1. Scattered groundglass opacities bilateral lung mckeon. Correlate for atypical pneumonia. 2. Enlarged mediastinal adenopathy. Finding can be compatible with recent diagnosis of sarcoidosis. F ollow-up is recommended. 3. Moderate fatty infiltration of liver. Hepatosplenomegaly is present. 4. Nonobstructing left renal stones.
== END | disposition home or self-care (01) ==
LOC: RADCTMAIN 15:10
PROVIDERS: ATTEND Internal Medicine Critical Care Medicine
DX: K76.0 Fatty (change of) liver, not elsewhere classified (principal); N20.0 Calculus of kidney; J84.9 Interstitial pulmonary disease, unspecified; D86.0 Sarcoidosis of lung; R91.8 Other nonspecific abnormal finding of lung field; R16.2 Hepatomegaly with splenomegaly, not elsewhere classified; R59.0 Localized enlarged lymph nodes
CPT/HCPCS: 71260; Q9967

== ENCOUNTER → 2023-10-31 | Outpatient (CLI) | payer OTHER | END | disposition home or self-care (01) | LOC: LABWHC1 16:16 | PROVIDERS: ATTEND Internal Medicine Critical Care Medicine | DX: D86.9 Sarcoidosis, unspecified (principal) | CPT/HCPCS: 36415; 82164 ==

== ENCOUNTER → 2024-04-11 | Outpatient (CLI) | payer OTHER ==
[2024-04-11 15:29] LABS: ALT 15 U/L (10-49); AST 23 U/L (14-35); Albumin 4.4 g/dL (3.8-4.9); Albumin/Globulin Ratio 1.52 Ratio (1.60-3.17); Alkaline Phosphatase 90 U/L (41-126); Blood Urea Nitrogen 18.9 mg/dL (9.0-27.0); Calcium 9.2 mg/dL (8.7-10.3); Carbon Dioxide 25.3 mmol/L (21.6-31.8); Chloride 104 mmol/L (96-109); Chol/HDL Ratio 4.11 Ratio; Globulin 2.9 g/dL (1.6-3.3); Glucose 132 mg/dL (70-110); LDL Cholesterol,Calculated 74.8 mg/dL (0.0-131.0); Potassium 3.6 mmol/L (3.5-5.5); Sodium 142 mmol/L (135-145); Total Bilirubin 0.5 mg/dL (0.3-1.2); Total Protein 7.3 g/dL (6.2-8.2)
== END | disposition home or self-care (01) ==
LOC: LABWHC1 08:10
PROVIDERS: ATTEND Internal Medicine Endocrinology, Diabetes & Metabolism
DX: E11.65 Type 2 diabetes mellitus with hyperglycemia (principal)
CPT/HCPCS: 36415; 80053; 80061; 82043; 82570; 83036; 84443

== ENCOUNTER → 2024-04-16 | Outpatient (CLI) | payer OTHER ==
--- NOTE | 2024-04-16 22:39 | CT ---
EXAMINATION TYPE: CT chest w con DATE OF EXAM: 04/16/2024 COMPARISON: 10/17/2023, 12/11/2019 HISTORY: 53-year-old male J84.9, dyspnea, Chronic cough x 3.5 years TECHNIQUE: Contiguous axial scanning of the chest after the administration of 80cc mL of Isovue 300. Coronal/sagittal reconstructions performed. CT DLP: 568.5mGycm. Automatic exposure control utilized for a dose reduction. FINDINGS: The heart is borderline enlarged without pericardial effusion. Borderline ectasia ascending aorta 3.5 cm. Conventional vessel branching anatomy. Numerous nonenlarged and borderline edema. No lymph nodes, largest lower right paratracheal measuring 1.9 cm, unchanged. Subcarinal node 1.7 cm versus 2.1 cm, previously. There is some thickening of the central bronchovascular bundles scattered patchy groundglass and reti cular change throughout the lungs which has remained stable. Upper to mid lung predominance. Some mil d mosaic attenuation in the upper lungs suggesting small airways disease. No cystic change or sushma p erilymphatic nodularity is seen. Diffuse low-attenuation of the hepatic parenchyma. Nonobstructive left renal stone measuring 8 mm. Th ere is splenomegaly at 16.7 cm. Mild degenerative disc disease scattered throughout. IMPRESSION: 1. Stable mediastinal adenopathy. Measuring up to 1.9 cm lower right paratracheal. The subcarinal nod e measuring 1.7 cm a slightly smaller from 2.1 cm, previously. 2. Bilateral groundglass change with an upper to mid lung predominance as well as some thickening of the central bronchovascular bundles appear similar from 10/17/2023. Consider extensive postinfectious scarring versus postinflammatory etiologies such as sarcoidosis. 3. Hepatic steatosis. Splenomegaly at 16.7 cm, unchanged; clinically correlate. Nonobstructive 8 mm l eft renal stone.
== END | disposition home or self-care (01) ==
LOC: RADCTMAIN 14:51
PROVIDERS: ATTEND Internal Medicine Critical Care Medicine
DX: J84.9 Interstitial pulmonary disease, unspecified (principal); K76.0 Fatty (change of) liver, not elsewhere classified; N20.0 Calculus of kidney; R16.1 Splenomegaly, not elsewhere classified; R59.0 Localized enlarged lymph nodes
CPT/HCPCS: 71260; Q9967

== ENCOUNTER → 2024-11-18 | Outpatient (CLI) | payer OTHER ==
[2024-11-18 19:13] LABS: ALT 26 U/L (10-49); AST 28 U/L (14-35); Albumin 4.1 g/dL (3.8-4.9); Albumin/Globulin Ratio 1.24 Ratio (1.60-3.17); Alkaline Phosphatase 109 U/L (41-126); BUN/Creat Ratio 18.25 Ratio (12.00-20.00); Blood Urea Nitrogen 21.9 mg/dL (9.0-27.0); Calcium 9.2 mg/dL (8.7-10.3); Carbon Dioxide 24.4 mmol/L (21.6-31.8); Chloride 103 mmol/L (96-109); Globulin 3.3 g/dL (1.6-3.3); Glucose 224 mg/dL (70-110); Sodium 138 mmol/L (135-145); Total Bilirubin 0.3 mg/dL (0.3-1.2); Total Protein 7.4 g/dL (6.2-8.2)
== END | disposition home or self-care (01) ==
LOC: LABWHC1 14:51
PROVIDERS: ATTEND Internal Medicine Critical Care Medicine
DX: D86.9 Sarcoidosis, unspecified (principal)
CPT/HCPCS: 36415; 80053; 82164

== ENCOUNTER → 2024-12-04 | Outpatient (CLI) | payer OTHER ==
[2024-12-04 21:28] LABS: ALT 139 U/L (10-49); AST 206 U/L (14-35); Albumin 4.4 g/dL (3.8-4.9); Albumin/Globulin Ratio 1.26 Ratio (1.60-3.17); Alkaline Phosphatase 152 U/L (41-126); BUN/Creat Ratio 11.71 Ratio (12.00-20.00); Blood Urea Nitrogen 16.4 mg/dL (9.0-27.0); Calcium 9.4 mg/dL (8.7-10.3); Carbon Dioxide 21.4 mmol/L (21.6-31.8); Chloride 103 mmol/L (96-109); Globulin 3.5 g/dL (1.6-3.3); Glucose 157 mg/dL (70-110); Potassium 4.2 mmol/L (3.5-5.5); Sodium 141 mmol/L (135-145); Total Bilirubin 0.7 mg/dL (0.3-1.2); Total Protein 7.9 g/dL (6.2-8.2)
[2024-12-04 21:30] LABS: Basophils # (A) 0.05 X 10*3/uL (0.00-0.10); Basophils % (A) 0.8 %; Eosinophils # (A) 0.22 X 10*3/uL (0.04-0.35); Eosinophils % (A) 3.3 %; HCT 45.5 % (39.6-50.0); HGB 14.9 g/dL (13.0-17.0); Lymphocytes # (A) 0.83 X 10*3/uL (0.90-5.00); Lymphocytes % (A) 12.6 %; MCH 28.5 pg (27.0-32.0); MCHC 32.7 g/dL (32.0-37.0); Mean Platelet Volume 10.9 FL (9.5-12.2); Monocytes # (A) 0.36 X 10*3/uL (0.20-1.00); Monocytes % (A) 5.5 %; NRBC Per 100 WBC 0 X 10*3/uL (0.00-0.01); Neutrophils # (A) 5.08 X 10*3/uL (1.80-7.70); Neutrophils % (A) 77.3 %; Platelet Count 261 X 10*3/uL (140-440); RBC 5.23 X 10*6/uL (4.40-5.60); RDW 14.2 % (11.5-14.5); WBC 6.57 X 10*3/uL (4.50-10.00)
== END | disposition home or self-care (01) ==
LOC: LABWHC1 13:44
PROVIDERS: ATTEND Family Medicine
DX: L03.115 Cellulitis of right lower limb (principal)
CPT/HCPCS: 36415; 80053; 85025